=== PATIENT | female | born 1965 | race Caucasian/White ===

== ENCOUNTER 2022-04-05 08:52 | Inpatient (IN) | payer MEDICAID, OTHER ==
[~2022-04-05] VITALS: Ht 162.6 cm; Wt 49.4 kg
[~2022-04-05 08:52] MED LIST: ALBU6.7H9 INH; FLUT1DIS3 INH; LISI2.5T47 MT; P20 MT
[2022-04-05] MEDS ORDERED: SODIUM CHLORIDE 0.9% 1000ML BAG (SEPSIS BOLUS) IV ONE (09:15)
[2022-04-05] MEDS ORDERED: ALBUTEROL (0.083%) 2.5MG/3ML NEB HHN STA (09:38)
[2022-04-05] MEDS ORDERED: METHYLPREDNISOLONE SOD SUCC 125 MG/2 ML VIAL IV STA (09:38)
[2022-04-05] MEDS ORDERED: IPRATROPIUM BROMIDE (0.02%) 0.5MG/2.5ML NEB HHN STA (09:38)
[2022-04-05] MEDS ORDERED: MAGNESIUM 2 G PREMIX 50 ML IV STA (09:38)
[2022-04-05] MEDS ORDERED: IPRATROPIUM/ALBUTEROL 0.5-3(2.5)MG/3ML NEB ONE (12:38)
[2022-04-05] MEDS ORDERED: ALBUTEROL (0.083%) 2.5MG/3ML NEB ONE (12:38)
[2022-04-05] MEDS ORDERED: IPRATROPIUM BROMIDE (0.02%) 0.5MG/2.5ML NEB ONE (12:39)
[2022-04-05 13:18] LABS: CHLORIDE 90 mEq/L (98-107)
[2022-04-05] MEDS ORDERED: ALBUTEROL (0.083%) 2.5MG/3ML NEB HHN SCH (15:30)
[2022-04-05] MEDS ORDERED: IPRATROPIUM BROMIDE (0.02%) 0.5MG/2.5ML NEB HHN NR (15:36)
[2022-04-05] MEDS ORDERED: MAGNESIUM 2 G PREMIX 50 ML IV NR (15:37)
[2022-04-05] MEDS ORDERED: METHYLPREDNISOLONE SOD SUCC 125 MG/2 ML VIAL IV NR (15:37)
[2022-04-05 15:51] LABS: EOSINOPHILS % 0.2 % (0.0-5.0); HEMATOCRIT. 41.9 % (36.0-48.0); HEMOGLOBIN. 14.4 g/dL (12.0-16.0); LYMPHOCYTES % 32.5 % (20.0-50.0); MEAN CORPUSCULAR HEMOGLOBIN 33.1 pg (28.0-32.0); MEAN CORPUSCULAR VOLUME 96.1 fL (81.0-99.0); MEAN PLATELET VOLUME 7.9 fl (7.4-10.4); MONOCYTES % 13.7 % (2.0-8.0); NEUTROPHILS % 52.6 % (40.0-76.0); PLATELET 168 x1000/uL (130-400); RED BLOOD CELL COUNT 4.36 mill/uL (4.2-5.4); RED CELL DISTRIBUTION WIDTH 14.2 % (11.6-14.6)
[2022-04-05 17:09] LABS: CLARITY URINE CLEAR (CLEAR); COLOR URINE YELLOW (YELLOW); KETONES URINE NEGATIVE (NEGATIVE); LEUKOCYTE ESTERASE URINE TRACE (NEGATIVE); NITRITE URINE NEGATIVE (NEGATIVE); OCCULT BLOOD URINE NEGATIVE (NEGATIVE); PROTEIN URINE NEGATIVE (NEGATIVE); SPECIFIC GRAVITY URINE 1.006 (1.005-1.030)
[2022-04-05 17:09] LABS: INR 1.1; PROTHROMBIN TIME 11.8 sec (9.6-11.0)
[2022-04-06 01:00] VITALS: BP 133/75
[2022-04-06 04:00] VITALS: BP 132/70
[2022-04-06] MEDS ORDERED: IPRATROPIUM/ALBUTEROL 0.5-3(2.5)MG/3ML NEB HHN PRN ×2 (06:00→14:00)
[2022-04-06 08:00] VITALS: BP 146/81
[2022-04-06] MEDS ORDERED: METHYLPREDNISOLONE SOD SUCC 40 MG/ML VIAL IV SCH (08:00)
[2022-04-06 12:00] VITALS: BP 130/57
[2022-04-06] MEDS: FOLIC ACID 1MG TABLET PO SCH (15:11)
[2022-04-06] MEDS: THIAMINE HCL 100MG TABLET PO SCH (15:11)
[2022-04-06] MEDS: MULTIVITAMINS,THER W-MINERALS TABLET PO SCH (15:11)
[2022-04-06] MEDS: NICOTINE 21MG PATCH TD SCH (15:12)
[2022-04-06] MEDS: SODIUM CHLORIDE 0.9% 1,000 ML IV SCH (15:17)
[2022-04-06 16:00] VITALS: BP 100/62
[2022-04-06 20:00] VITALS: BP 138/69
[2022-04-06] MEDS: GUAIFENESIN 600MG ER TABLET PO SCH (21:16)
[2022-04-06] MEDS: METHYLPREDNISOLONE SOD SUCC 40 MG/ML VIAL IV SCH (21:16)
[2022-04-06] MEDS: IPRATROPIUM/ALBUTEROL 0.5-3(2.5)MG/3ML NEB HHN SCH (21:34)
[2022-04-07] VITALS: BP 131/71
[2022-04-07] MEDS: SODIUM CHLORIDE 0.9% 1,000 ML IV SCH ×4 (00:39→21:33)
[2022-04-07] MEDS: IPRATROPIUM/ALBUTEROL 0.5-3(2.5)MG/3ML NEB HHN SCH ×4 (02:24→21:35)
[2022-04-07 04:00] VITALS: BP 130/70
[2022-04-07 07:21] LABS: CHLORIDE 94 mEq/L (98-107)
[2022-04-07 08:00] VITALS: BP 150/76
[2022-04-07] MEDS: THIAMINE HCL 100MG TABLET PO SCH (09:40)
[2022-04-07] MEDS: NICOTINE 21MG PATCH TD SCH (09:40)
[2022-04-07] MEDS: GUAIFENESIN 600MG ER TABLET PO SCH ×2 (09:40→21:08)
[2022-04-07] MEDS: FOLIC ACID 1MG TABLET PO SCH (09:40)
[2022-04-07] MEDS: MULTIVITAMINS,THER W-MINERALS TABLET PO SCH (09:40)
[2022-04-07] MEDS: METHYLPREDNISOLONE SOD SUCC 40 MG/ML VIAL IV SCH ×3 (09:40→21:00)
[2022-04-07 12:00] VITALS: BP 121/76
[2022-04-07 16:00] VITALS: BP 118/79
[2022-04-07 20:00] VITALS: BP 103/51
[2022-04-07] MEDS: PREDNISONE 20MG TABLET PO SCH (21:46)
[2022-04-08] VITALS: BP 131/65
[2022-04-08] MEDS: IPRATROPIUM/ALBUTEROL 0.5-3(2.5)MG/3ML NEB HHN SCH ×3 (03:15→12:00)
[2022-04-08 04:00] VITALS: BP 145/77
[2022-04-08] MEDS: SODIUM CHLORIDE 0.9% 1,000 ML IV SCH ×2 (05:07→16:00)
[2022-04-08 07:34] LABS: BASOPHILS % 0.1 % (0.0-2.0); HEMATOCRIT. 41.1 % (36.0-48.0); LYMPHOCYTES % 16.8 % (20.0-50.0); MEAN CORPUSCULAR VOLUME 96.8 fL (81.0-99.0); MEAN PLATELET VOLUME 8.4 fl (7.4-10.4); NEUTROPHILS % 72.1 % (40.0-76.0); PLATELET 153 x1000/uL (130-400); RED BLOOD CELL COUNT 4.24 mill/uL (4.2-5.4); RED CELL DISTRIBUTION WIDTH 13.9 % (11.6-14.6)
[2022-04-08 07:35] LABS: CHLORIDE 94 mEq/L (98-107)
[2022-04-08 08:00] VITALS: BP 135/79
[2022-04-08] MEDS: THIAMINE HCL 100MG TABLET PO SCH (09:03)
[2022-04-08] MEDS: FOLIC ACID 1MG TABLET PO SCH (09:03)
[2022-04-08] MEDS: MULTIVITAMINS,THER W-MINERALS TABLET PO SCH (09:03)
[2022-04-08] MEDS: PREDNISONE 20MG TABLET PO SCH (09:03)
[2022-04-08] MEDS: GUAIFENESIN 600MG ER TABLET PO SCH ×2 (09:03→21:39)
[2022-04-08] MEDS: NICOTINE 21MG PATCH TD SCH (09:04)
[2022-04-08 12:00] VITALS: BP 148/87
[2022-04-08 16:00] VITALS: BP 166/87
[2022-04-08 17:12] LABS: BG BASE EXCESS 3.9 mmol/L (-2.0-2.0); BG CARBOXYHEMOGLOBIN 0.6 % (0.5-1.5); BG DEOXYHEMOGLOBIN 10.1 % (0.0-5.0); BG FRACTION INSPIRED OXYGEN 21; BG HCO3 ACT 28.6 mmol/L (22.0-26.0); BG METHEMOGLOBIN 0.2 % (0.0-1.5); BG OXYGEN SATURATION 89.8 % (92.0-98.5); BG OXYHEMOGLOBIN 89.1 % (94.0-97.0); BG PCO2 43.2 mmHg (35.0-45.0); BG PH 7.438 (7.350-7.450); BG PO2 56.7 mmHg (75.0-100.0); BG SAMPLE SITE RIGHT RADIAL; BG TOTAL HEMOGLOBIN 14.5 g/dL (12.0-18.0); BG VENT MODE ROOM AIR
[2022-04-08 20:00] VITALS: BP 138/84
[2022-04-08] MEDS: ZOLPIDEM TARTRATE 5MG TABLET PO PRN (21:40)
[2022-04-09] VITALS: BP 141/82
[2022-04-09] MEDS: IPRATROPIUM/ALBUTEROL 0.5-3(2.5)MG/3ML NEB HHN SCH ×4 (01:15→20:55)
[2022-04-09] MEDS: SODIUM CHLORIDE 0.9% 1,000 ML IV SCH ×3 (02:00→21:37)
[2022-04-09 04:00] VITALS: BP 138/75
[2022-04-09 08:00] VITALS: BP 148/87
[2022-04-09] MEDS: NICOTINE 21MG PATCH TD SCH (09:23)
[2022-04-09] MEDS: MULTIVITAMINS,THER W-MINERALS TABLET PO SCH (09:23)
[2022-04-09] MEDS: PREDNISONE 20MG TABLET PO SCH ×2 (09:23→18:01)
[2022-04-09] MEDS: GUAIFENESIN 600MG ER TABLET PO SCH ×2 (09:23→21:36)
[2022-04-09] MEDS: THIAMINE HCL 100MG TABLET PO SCH (09:23)
[2022-04-09] MEDS: FOLIC ACID 1MG TABLET PO SCH (09:23)
[2022-04-09] MEDS ORDERED: P20 MT (09:33)
[2022-04-09] MEDS ORDERED: FAMO20TA8 MT (09:33)
[2022-04-09] MEDS ORDERED: ALBU6.7H9 INH (09:34)
[2022-04-09] MEDS ORDERED: THIA100T72 MT (09:34)
[2022-04-09] MEDS ORDERED: MULT-1116 MT (09:34)
[2022-04-09 12:00] VITALS: BP 166/90
[2022-04-09] MEDS: AMLODIPINE 5MG TABLET PO SCH (13:49)
[2022-04-09] MEDS ORDERED: LORAZEPAM 1MG TABLET PO PRN ×2 (15:30)
[2022-04-09 15:56] VITALS: BP 107/65
[2022-04-09 20:00] VITALS: BP 155/88
[2022-04-09] MEDS: ZOLPIDEM TARTRATE 5MG TABLET PO PRN (21:36)
[2022-04-10] VITALS: BP 156/84
[2022-04-10] MEDS: SODIUM CHLORIDE 0.9% 1,000 ML IV SCH ×2 (00:30→07:17)
[2022-04-10] MEDS: IPRATROPIUM/ALBUTEROL 0.5-3(2.5)MG/3ML NEB HHN SCH ×4 (01:11→20:36)
[2022-04-10 04:00] VITALS: BP 146/78
[2022-04-10 08:00] VITALS: BP 141/75
[2022-04-10] MEDS: MULTIVITAMINS,THER W-MINERALS TABLET PO SCH (09:45)
[2022-04-10] MEDS: FOLIC ACID 1MG TABLET PO SCH (09:46)
[2022-04-10] MEDS: GUAIFENESIN 600MG ER TABLET PO SCH ×2 (09:46→21:58)
[2022-04-10] MEDS: NICOTINE 21MG PATCH TD SCH (09:46)
[2022-04-10] MEDS: PREDNISONE 20MG TABLET PO SCH ×2 (09:46→17:26)
[2022-04-10] MEDS: AMLODIPINE 5MG TABLET PO SCH (09:46)
[2022-04-10] MEDS: THIAMINE HCL 100MG TABLET PO SCH (09:46)
[2022-04-10 12:00] VITALS: BP 132/80
[2022-04-10 14:30] LABS: BG CARBOXYHEMOGLOBIN 0.7 % (0.5-1.5); BG DEOXYHEMOGLOBIN 13.7 % (0.0-5.0); BG FRACTION INSPIRED OXYGEN 21; BG HCO3 ACT 26.2 mmol/L (22.0-26.0); BG METHEMOGLOBIN 0.1 % (0.0-1.5); BG OXYGEN SATURATION 86.2 % (92.0-98.5); BG OXYHEMOGLOBIN 85.5 % (94.0-97.0); BG PCO2 39.3 mmHg (35.0-45.0); BG PH 7.441 (7.350-7.450); BG PO2 51.4 mmHg (75.0-100.0); BG SAMPLE SITE RIGHT RADIAL; BG TOTAL HEMOGLOBIN 14.2 g/dL (12.0-18.0); BG VENT MODE ROOM AIR
[2022-04-10 16:00] VITALS: BP 139/75
[2022-04-10 20:00] VITALS: BP 145/80
[2022-04-10] MEDS: HYDROCODONE/ACETAMINOPHEN 5/325MG TABLET PO PRN (22:00)
[2022-04-11] VITALS: BP 99/52
[2022-04-11] MEDS: IPRATROPIUM/ALBUTEROL 0.5-3(2.5)MG/3ML NEB HHN SCH ×3 (01:50→20:51)
[2022-04-11 04:00] VITALS: BP 124/78
[2022-04-11 06:44] LABS: BASOPHILS % 0.1 % (0.0-2.0); EOSINOPHILS % 0.1 % (0.0-5.0); HEMATOCRIT. 36.5 % (36.0-48.0); HEMOGLOBIN. 12.9 g/dL (12.0-16.0); MEAN CORPUSCULAR HEMOGLOBIN 33.7 pg (28.0-32.0); MEAN CORPUSCULAR VOLUME 95.2 fL (81.0-99.0); MEAN PLATELET VOLUME 8.4 fl (7.4-10.4); MONOCYTES % 11.1 % (2.0-8.0); NEUTROPHILS % 71.7 % (40.0-76.0); PLATELET 143 x1000/uL (130-400); RED BLOOD CELL COUNT 3.84 mill/uL (4.2-5.4); RED CELL DISTRIBUTION WIDTH 13.4 % (11.6-14.6)
[2022-04-11 07:19] LABS: CHLORIDE 79 mEq/L (98-107)
[2022-04-11 09:00] VITALS: BP 152/78
[2022-04-11] MEDS ORDERED: LORAZEPAM 0.5MG TABLET PO NR ×2 (09:15→15:00)
[2022-04-11] MEDS: GUAIFENESIN 600MG ER TABLET PO SCH ×2 (09:33→20:47)
[2022-04-11] MEDS: AMLODIPINE 5MG TABLET PO SCH (09:34)
[2022-04-11] MEDS: HYDROCODONE/ACETAMINOPHEN 5/325MG TABLET PO PRN (09:34)
[2022-04-11] MEDS: MULTIVITAMINS,THER W-MINERALS TABLET PO SCH (09:35)
[2022-04-11] MEDS: FOLIC ACID 1MG TABLET PO SCH (09:35)
[2022-04-11] MEDS: SODIUM CHLORIDE 0.9% 1,000 ML IV SCH ×2 (09:35→17:13)
[2022-04-11] MEDS: NICOTINE 21MG PATCH TD SCH (09:35)
[2022-04-11] MEDS: THIAMINE HCL 100MG TABLET PO SCH (09:35)
[2022-04-11] MEDS ORDERED: NALOXONE HCL 0.4MG/ML VIAL IV PRN (09:45)
[2022-04-11 12:00] VITALS: BP 148/77
[2022-04-11 13:00] LABS: SODIUM URINE RANDOM 29 mEq/L
[2022-04-11 13:07] LABS: *AMPHETAMINES SCREEN URINE NEGATIVE (NEGATIVE); *BARBITURATES SCREEN URINE NEGATIVE (NEGATIVE); *BENZODIAZEPINES SCREEN URINE NEGATIVE (NEGATIVE); *COCAINE SCREEN URINE NEGATIVE (NEGATIVE); CANNABINOID URINE SCREEN NEGATIVE (NEGATIVE); METHADONE URINE SCREEN NEGATIVE (NEGATIVE); OPIATES URINE SCREEN PRESUMTIVE POSITIVE (NEGATIVE); PHENCYCLIDINE URINE SCREEN NEGATIVE (NEGATIVE)
[2022-04-11 19:05] LABS: CHLORIDE 78 mEq/L (98-107)
[2022-04-11 20:00] VITALS: BP 147/81
[2022-04-11] MEDS ORDERED: SODIUM CHLORIDE 3% 500 ML IV NR (22:00)
[2022-04-12] VITALS (34 sets, daily range): BP systolic 85–143; BP diastolic 48–87
[2022-04-12] MEDS ORDERED: NICARDIPINE 100 MG in SODIUM CHLORIDE 0.9% 60 ML IV PRN ×2
[2022-04-12] MEDS ORDERED: HYDRALAZINE 20MG/ML VIAL IV PRN (01:15)
[2022-04-12] MEDS: LEVETIRACETAM 500MG PREMIX 100 ML IV SCH ×2 (01:38→08:26)
[2022-04-12] MEDS: MORPHINE SULFATE 2 MG/ML CPJ (NOT FOR IM USE) IV PRN ×3 (02:26→20:13)
[2022-04-12 05:31] LABS: HEMATOCRIT. 36.1 % (36.0-48.0); HEMOGLOBIN. 12.3 g/dL (12.0-16.0); MEAN CORPUSCULAR HEMOGLOBIN 33.4 pg (28.0-32.0); MEAN CORPUSCULAR VOLUME 97.8 fL (81.0-99.0); MEAN PLATELET VOLUME 7.6 fl (7.4-10.4); PLATELET 148 x1000/uL (130-400); RED CELL DISTRIBUTION WIDTH 13.6 % (11.6-14.6)
[2022-04-12 05:41] LABS: CHLORIDE 84 mEq/L (98-107)
[2022-04-12 05:48] LABS: PHOSPHORUS 1.6 mg/dL (2.5-4.9)
[2022-04-12] MEDS: IPRATROPIUM/ALBUTEROL 0.5-3(2.5)MG/3ML NEB HHN SCH ×3 (08:16→20:00)
[2022-04-12] MEDS: NICOTINE 21MG PATCH TD SCH (08:26)
[2022-04-12] MEDS: FOLIC ACID 1MG TABLET PO SCH (08:27)
[2022-04-12] MEDS: GUAIFENESIN 600MG ER TABLET PO SCH ×2 (08:27→20:10)
[2022-04-12] MEDS: AMLODIPINE 5MG TABLET PO SCH (08:27)
[2022-04-12] MEDS: MULTIVITAMINS,THER W-MINERALS TABLET PO SCH (08:27)
[2022-04-12] MEDS: PREDNISONE 20MG TABLET PO SCH (08:27)
[2022-04-12] MEDS: THIAMINE HCL 100MG TABLET PO SCH (08:27)
[2022-04-12] MEDS ORDERED: POTASSIUM PHOS,M-BASIC-D-BASIC 30 MMOL in SODIUM CHLORIDE 0.9% 500 ML IV NR (09:00)
[2022-04-12] MEDS ORDERED: LIDOCAINE HCL 1% 10 MG/ML 10ML VIAL ONE (09:59)
[2022-04-12 14:38] LABS: CHLORIDE 90 mEq/L (98-107)
[2022-04-12 15:13] LABS: PLATELET ESTIMATE NORMAL
[2022-04-12] MEDS: HALOPERIDOL LACTATE 5MG/ML VIAL IM PRN (16:54)
[2022-04-12] MEDS: LEVETIRACETAM 500MG TABLET PO SCH (20:10)
[2022-04-12] MEDS: HYDROCODONE/ACETAMINOPHEN 5/325MG TABLET PO PRN (23:22)
[2022-04-13] VITALS (12 sets, daily range): BP systolic 112–149; BP diastolic 51–84
[2022-04-13] MEDS: IPRATROPIUM/ALBUTEROL 0.5-3(2.5)MG/3ML NEB HHN SCH ×4 (01:43→20:26)
[2022-04-13] MEDS: MORPHINE SULFATE 2 MG/ML CPJ (NOT FOR IM USE) IV PRN ×5 (03:16→22:44)
[2022-04-13 07:59] LABS: HEMATOCRIT. 32.8 % (36.0-48.0); HEMOGLOBIN. 11.5 g/dL (12.0-16.0); MEAN CORPUSCULAR HEMOGLOBIN 33.7 pg (28.0-32.0); MEAN CORPUSCULAR VOLUME 95.7 fL (81.0-99.0); PLATELET 149 x1000/uL (130-400); RED BLOOD CELL COUNT 3.43 mill/uL (4.2-5.4); RED CELL DISTRIBUTION WIDTH 13.7 % (11.6-14.6)
[2022-04-13] MEDS: THIAMINE HCL 100MG TABLET PO SCH (08:19)
[2022-04-13] MEDS: AMLODIPINE 5MG TABLET PO SCH (08:20)
[2022-04-13] MEDS: PREDNISONE 20MG TABLET PO SCH (08:20)
[2022-04-13] MEDS: NICOTINE 21MG PATCH TD SCH (08:20)
[2022-04-13] MEDS: LEVETIRACETAM 500MG TABLET PO SCH ×2 (08:21→20:13)
[2022-04-13] MEDS: MULTIVITAMINS,THER W-MINERALS TABLET PO SCH (08:21)
[2022-04-13 08:35] LABS: CHLORIDE 96 mEq/L (98-107)
[2022-04-13 10:27] LABS: PLATELET ESTIMATE NORMAL
[2022-04-13] MEDS: FOLIC ACID 1MG TABLET PO SCH (10:34)
[2022-04-13] MEDS: GUAIFENESIN 600MG ER TABLET PO SCH ×2 (10:34→20:13)
[2022-04-13] MEDS ORDERED: POTASSIUM-SODIUM PHOSPHATE POWDER PACKET PO NR (11:30)
[2022-04-13] MEDS: POLYVINYL ALCOHOL OPHTH DROPS 15ML BOTHEYE SCH (18:19)
[2022-04-13] MEDS: HYDROCODONE/ACETAMINOPHEN 5/325MG TABLET PO PRN (20:07)
[2022-04-14] VITALS (9 sets, daily range): BP systolic 102–143; BP diastolic 58–84
[2022-04-14] MEDS: HALOPERIDOL LACTATE 5MG/ML VIAL IM PRN (00:07)
[2022-04-14] MEDS: POLYVINYL ALCOHOL OPHTH DROPS 15ML BOTHEYE SCH ×4 (00:07→18:00)
[2022-04-14] MEDS: IPRATROPIUM/ALBUTEROL 0.5-3(2.5)MG/3ML NEB HHN SCH ×5 (02:00→21:00)
[2022-04-14 06:13] LABS: CHLORIDE 93 mEq/L (98-107)
[2022-04-14 06:22] LABS: PHOSPHORUS 2.5 mg/dL (2.5-4.9)
[2022-04-14 06:41] LABS: BASOPHILS % 0.3 % (0.0-2.0); EOSINOPHILS % 0.3 % (0.0-5.0); HEMATOCRIT. 32.7 % (36.0-48.0); HEMOGLOBIN. 11.2 g/dL (12.0-16.0); LYMPHOCYTES % 22.5 % (20.0-50.0); MEAN CORPUSCULAR VOLUME 96.1 fL (81.0-99.0); MEAN PLATELET VOLUME 7.9 fl (7.4-10.4); MONOCYTES % 13.2 % (2.0-8.0); NEUTROPHILS % 63.7 % (40.0-76.0); PLATELET 165 x1000/uL (130-400); RED BLOOD CELL COUNT 3.41 mill/uL (4.2-5.4); RED CELL DISTRIBUTION WIDTH 13.8 % (11.6-14.6)
[2022-04-14] MEDS: NICOTINE 21MG PATCH TD SCH (09:29)
[2022-04-14] MEDS: PREDNISONE 20MG TABLET PO SCH (09:29)
[2022-04-14] MEDS: THIAMINE HCL 100MG TABLET PO SCH (09:29)
[2022-04-14] MEDS: MULTIVITAMINS,THER W-MINERALS TABLET PO SCH (09:30)
[2022-04-14] MEDS: FOLIC ACID 1MG TABLET PO SCH (09:30)
[2022-04-14] MEDS: GUAIFENESIN 600MG ER TABLET PO SCH ×2 (09:30→20:43)
[2022-04-14] MEDS: AMLODIPINE 5MG TABLET PO SCH (09:30)
[2022-04-14] MEDS: LEVETIRACETAM 500MG TABLET PO SCH ×2 (09:30→20:43)
[2022-04-14] MEDS: HYDROCODONE/ACETAMINOPHEN 5/325MG TABLET PO PRN (13:57)
[2022-04-14] MEDS: MORPHINE SULFATE 2 MG/ML CPJ (NOT FOR IM USE) IV PRN (21:41)
[2022-04-15] VITALS (10 sets, daily range): BP systolic 112–146; BP diastolic 59–87
[2022-04-15] MEDS: HYDROCODONE/ACETAMINOPHEN 5/325MG TABLET PO PRN ×2 (00:35→12:05)
[2022-04-15] MEDS: POLYVINYL ALCOHOL OPHTH DROPS 15ML BOTHEYE SCH ×5 (00:35→23:28)
[2022-04-15] MEDS: HALOPERIDOL LACTATE 5MG/ML VIAL IM PRN (01:20)
[2022-04-15 06:24] LABS: BASOPHILS % 0.1 % (0.0-2.0); EOSINOPHILS % 0.1 % (0.0-5.0); HEMATOCRIT. 30.2 % (36.0-48.0); HEMOGLOBIN. 10.4 g/dL (12.0-16.0); LYMPHOCYTES % 19.2 % (20.0-50.0); MEAN CORPUSCULAR HEMOGLOBIN 33.4 pg (28.0-32.0); MEAN CORPUSCULAR VOLUME 96.7 fL (81.0-99.0); MEAN PLATELET VOLUME 7.8 fl (7.4-10.4); MONOCYTES % 11.5 % (2.0-8.0); NEUTROPHILS % 69.1 % (40.0-76.0); PLATELET 151 x1000/uL (130-400); RED BLOOD CELL COUNT 3.12 mill/uL (4.2-5.4); RED CELL DISTRIBUTION WIDTH 13.5 % (11.6-14.6)
[2022-04-15 06:57] LABS: CHLORIDE 94 mEq/L (98-107)
[2022-04-15 07:28] LABS: PHOSPHORUS 2.9 mg/dL (2.5-4.9)
[2022-04-15] MEDS: IPRATROPIUM/ALBUTEROL 0.5-3(2.5)MG/3ML NEB HHN SCH ×3 (08:29→20:54)
[2022-04-15] MEDS: NICOTINE 21MG PATCH TD SCH (09:01)
[2022-04-15] MEDS: GUAIFENESIN 600MG ER TABLET PO SCH ×2 (09:01→21:05)
[2022-04-15] MEDS: MULTIVITAMINS,THER W-MINERALS TABLET PO SCH (09:02)
[2022-04-15] MEDS: FOLIC ACID 1MG TABLET PO SCH (09:02)
[2022-04-15] MEDS: THIAMINE HCL 100MG TABLET PO SCH (09:02)
[2022-04-15] MEDS: PREDNISONE 20MG TABLET PO SCH (09:02)
[2022-04-15] MEDS: LEVETIRACETAM 500MG TABLET PO SCH ×2 (09:02→21:05)
[2022-04-15] MEDS: AMLODIPINE 5MG TABLET PO SCH (09:02)
[2022-04-15] MEDS: MORPHINE SULFATE 2 MG/ML CPJ (NOT FOR IM USE) IV PRN (17:42)
[2022-04-15] MEDS: LACTULOSE 20G/30ML UDC PO SCH (21:05)
[2022-04-16] VITALS (11 sets, daily range): BP systolic 112–154; BP diastolic 64–88
[2022-04-16] MEDS: IPRATROPIUM/ALBUTEROL 0.5-3(2.5)MG/3ML NEB HHN SCH ×4 (00:49→20:21)
[2022-04-16] MEDS: HALOPERIDOL LACTATE 5MG/ML VIAL IM PRN (01:42)
[2022-04-16] MEDS: LACTULOSE 20G/30ML UDC PO SCH ×3 (05:09→21:15)
[2022-04-16] MEDS: POLYVINYL ALCOHOL OPHTH DROPS 15ML BOTHEYE SCH ×3 (05:09→17:56)
[2022-04-16 06:17] LABS: CHLORIDE 95 mEq/L (98-107)
[2022-04-16 06:28] LABS: PHOSPHORUS 3.1 mg/dL (2.5-4.9)
[2022-04-16 06:34] LABS: BASOPHILS % 0.4 % (0.0-2.0); EOSINOPHILS % 0.5 % (0.0-5.0); HEMATOCRIT. 31.1 % (36.0-48.0); HEMOGLOBIN. 10.6 g/dL (12.0-16.0); LYMPHOCYTES % 29.8 % (20.0-50.0); MEAN CORPUSCULAR HEMOGLOBIN 33.1 pg (28.0-32.0); MEAN CORPUSCULAR VOLUME 96.6 fL (81.0-99.0); MEAN PLATELET VOLUME 7.6 fl (7.4-10.4); NEUTROPHILS % 61.3 % (40.0-76.0); PLATELET 170 x1000/uL (130-400); RED BLOOD CELL COUNT 3.22 mill/uL (4.2-5.4); RED CELL DISTRIBUTION WIDTH 13.8 % (11.6-14.6)
[2022-04-16] MEDS: FOLIC ACID 1MG TABLET PO SCH (09:31)
[2022-04-16] MEDS: MULTIVITAMINS,THER W-MINERALS TABLET PO SCH (09:31)
[2022-04-16] MEDS: THIAMINE HCL 100MG TABLET PO SCH (09:32)
[2022-04-16] MEDS: PREDNISONE 20MG TABLET PO SCH (09:32)
[2022-04-16] MEDS: AMLODIPINE 5MG TABLET PO SCH (09:32)
[2022-04-16] MEDS: LEVETIRACETAM 500MG TABLET PO SCH ×2 (09:32→21:14)
[2022-04-16] MEDS: GUAIFENESIN 600MG ER TABLET PO SCH ×2 (09:32→21:14)
[2022-04-16] MEDS: NICOTINE 21MG PATCH TD SCH (09:33)
[2022-04-16] MEDS: MORPHINE SULFATE 2 MG/ML CPJ (NOT FOR IM USE) IV PRN ×3 (09:42→19:49)
[2022-04-17] VITALS (11 sets, daily range): BP systolic 104–137; BP diastolic 67–96
[2022-04-17] MEDS ORDERED: MORPHINE SULFATE 2 MG/ML CPJ (NOT FOR IM USE) IV NR (00:30)
[2022-04-17] MEDS: POLYVINYL ALCOHOL OPHTH DROPS 15ML BOTHEYE SCH ×3 (00:33→12:00)
[2022-04-17] MEDS: IPRATROPIUM/ALBUTEROL 0.5-3(2.5)MG/3ML NEB HHN SCH ×4 (02:18→21:00)
[2022-04-17] MEDS: HALOPERIDOL LACTATE 5MG/ML VIAL IM PRN ×2 (05:58→15:01)
[2022-04-17] MEDS: LACTULOSE 20G/30ML UDC PO SCH ×3 (05:58→21:48)
[2022-04-17 06:22] LABS: BASOPHILS % 0.3 % (0.0-2.0); EOSINOPHILS % 0.7 % (0.0-5.0); HEMATOCRIT. 31.5 % (36.0-48.0); HEMOGLOBIN. 10.9 g/dL (12.0-16.0); LYMPHOCYTES % 25.2 % (20.0-50.0); MEAN CORPUSCULAR HEMOGLOBIN 33.4 pg (28.0-32.0); MEAN CORPUSCULAR VOLUME 96.9 fL (81.0-99.0); MEAN PLATELET VOLUME 7.3 fl (7.4-10.4); NEUTROPHILS % 65.8 % (40.0-76.0); PLATELET 179 x1000/uL (130-400); RED BLOOD CELL COUNT 3.25 mill/uL (4.2-5.4); RED CELL DISTRIBUTION WIDTH 13.8 % (11.6-14.6)
[2022-04-17 06:24] LABS: CHLORIDE 96 mEq/L (98-107)
[2022-04-17 06:33] LABS: PHOSPHORUS 3.6 mg/dL (2.5-4.9)
[2022-04-17] MEDS: AMLODIPINE 5MG TABLET PO SCH (09:00)
[2022-04-17] MEDS: NICOTINE 21MG PATCH TD SCH (09:00)
[2022-04-17] MEDS: GUAIFENESIN 600MG ER TABLET PO SCH ×2 (09:27→21:36)
[2022-04-17] MEDS: FOLIC ACID 1MG TABLET PO SCH (09:27)
[2022-04-17] MEDS: LEVETIRACETAM 500MG TABLET PO SCH ×2 (09:27→21:36)
[2022-04-17] MEDS: THIAMINE HCL 100MG TABLET PO SCH (09:28)
[2022-04-17] MEDS: MULTIVITAMINS,THER W-MINERALS TABLET PO SCH (09:28)
[2022-04-17] MEDS ORDERED: HYDRALAZINE 5 MG in SODIUM CHLORIDE 0.9% 49.5 ML IV PRN (16:30)
[2022-04-18] VITALS: BP 144/76
[2022-04-18 04:00] VITALS: BP 147/73
[2022-04-18] MEDS: POLYVINYL ALCOHOL OPHTH DROPS 15ML BOTHEYE SCH ×4 (06:00→18:00)
[2022-04-18] MEDS: LACTULOSE 20G/30ML UDC PO SCH ×3 (06:24→21:33)
[2022-04-18 06:33] LABS: BASOPHILS % 0.7 % (0.0-2.0); EOSINOPHILS % 0.6 % (0.0-5.0); HEMATOCRIT. 31.5 % (36.0-48.0); HEMOGLOBIN. 10.8 g/dL (12.0-16.0); LYMPHOCYTES % 30.4 % (20.0-50.0); MEAN CORPUSCULAR HEMOGLOBIN 33.1 pg (28.0-32.0); MEAN CORPUSCULAR VOLUME 96.8 fL (81.0-99.0); MEAN PLATELET VOLUME 7.2 fl (7.4-10.4); MONOCYTES % 10.1 % (2.0-8.0); NEUTROPHILS % 58.2 % (40.0-76.0); PLATELET 157 x1000/uL (130-400); RED BLOOD CELL COUNT 3.25 mill/uL (4.2-5.4); RED CELL DISTRIBUTION WIDTH 13.9 % (11.6-14.6)
[2022-04-18 06:35] LABS: CHLORIDE 97 mEq/L (98-107)
[2022-04-18 06:42] LABS: PHOSPHORUS 3.7 mg/dL (2.5-4.9)
[2022-04-18 08:00] VITALS: BP 147/85
[2022-04-18] MEDS: IPRATROPIUM/ALBUTEROL 0.5-3(2.5)MG/3ML NEB HHN SCH ×2 (09:00→21:14)
[2022-04-18] MEDS: NICOTINE 21MG PATCH TD SCH (09:36)
[2022-04-18] MEDS: GUAIFENESIN 600MG ER TABLET PO SCH ×2 (09:36→21:33)
[2022-04-18] MEDS: LEVETIRACETAM 500MG TABLET PO SCH ×2 (09:36→21:32)
[2022-04-18] MEDS: FOLIC ACID 1MG TABLET PO SCH (09:37)
[2022-04-18] MEDS: HALOPERIDOL LACTATE 5MG/ML VIAL IM PRN ×2 (09:37→17:42)
[2022-04-18] MEDS: AMLODIPINE 5MG TABLET PO SCH (09:37)
[2022-04-18] MEDS: MULTIVITAMINS,THER W-MINERALS TABLET PO SCH (09:37)
[2022-04-18] MEDS: THIAMINE HCL 100MG TABLET PO SCH (09:37)
[2022-04-18 12:00] VITALS: BP 108/75
[2022-04-18 16:00] VITALS: BP 108/75
[2022-04-19] VITALS: BP 110/68
[2022-04-19 04:00] VITALS: BP 128/65
[2022-04-19] MEDS: LACTULOSE 20G/30ML UDC PO SCH ×3 (06:00→21:45)
[2022-04-19 07:41] LABS: EOSINOPHILS % 0.3 % (0.0-5.0); HEMATOCRIT. 32.9 % (36.0-48.0); LYMPHOCYTES % 26.5 % (20.0-50.0); MEAN CORPUSCULAR HEMOGLOBIN 33.3 pg (28.0-32.0); MEAN CORPUSCULAR VOLUME 99.3 fL (81.0-99.0); MEAN PLATELET VOLUME 7.5 fl (7.4-10.4); MONOCYTES % 10.5 % (2.0-8.0); NEUTROPHILS % 61.7 % (40.0-76.0); PLATELET 140 x1000/uL (130-400); RED BLOOD CELL COUNT 3.31 mill/uL (4.2-5.4); RED CELL DISTRIBUTION WIDTH 14.1 % (11.6-14.6)
[2022-04-19 07:53] LABS: CHLORIDE 100 mEq/L (98-107)
[2022-04-19 08:00] VITALS: BP 139/85
[2022-04-19 08:01] LABS: PHOSPHORUS 3.2 mg/dL (2.5-4.9)
[2022-04-19] MEDS: POLYVINYL ALCOHOL OPHTH DROPS 15ML BOTHEYE SCH ×5 (09:00→18:00)
[2022-04-19] MEDS: LEVETIRACETAM 500MG TABLET PO SCH ×2 (09:48→21:45)
[2022-04-19] MEDS: GUAIFENESIN 600MG ER TABLET PO SCH ×2 (09:49→21:45)
[2022-04-19] MEDS: AMLODIPINE 5MG TABLET PO SCH (09:49)
[2022-04-19] MEDS: THIAMINE HCL 100MG TABLET PO SCH (09:49)
[2022-04-19] MEDS: NICOTINE 21MG PATCH TD SCH (09:49)
[2022-04-19] MEDS: MULTIVITAMINS,THER W-MINERALS TABLET PO SCH (09:49)
[2022-04-19] MEDS: FOLIC ACID 1MG TABLET PO SCH (09:49)
[2022-04-19] MEDS: HALOPERIDOL LACTATE 5MG/ML VIAL IM PRN (09:56)
[2022-04-19] MEDS: CHLORDIAZEPOXIDE 5 MG CAPSULE PO SCH ×3 (11:00→21:45)
[2022-04-19 12:00] VITALS: BP 130/72
[2022-04-19 16:00] VITALS: BP 146/84
[2022-04-19 20:00] VITALS: BP 123/80
[2022-04-20] VITALS: BP 148/85
[2022-04-20 04:00] VITALS: BP 136/78
[2022-04-20] MEDS: CHLORDIAZEPOXIDE 5 MG CAPSULE PO SCH (06:32)
[2022-04-20] MEDS: LACTULOSE 20G/30ML UDC PO SCH ×3 (06:32→21:15)
[2022-04-20] MEDS: POLYVINYL ALCOHOL OPHTH DROPS 15ML BOTHEYE SCH ×5 (06:32→23:23)
[2022-04-20 07:19] LABS: CHLORIDE 100 mEq/L (98-107)
[2022-04-20 08:00] VITALS: BP 150/79
[2022-04-20] MEDS: NICOTINE 21MG PATCH TD SCH (10:05)
[2022-04-20] MEDS: THIAMINE HCL 100MG TABLET PO SCH (10:05)
[2022-04-20] MEDS: GUAIFENESIN 600MG ER TABLET PO SCH ×2 (10:05→21:12)
[2022-04-20] MEDS: MULTIVITAMINS,THER W-MINERALS TABLET PO SCH (10:05)
[2022-04-20] MEDS: LEVETIRACETAM 500MG TABLET PO SCH ×2 (10:06→21:12)
[2022-04-20] MEDS: AMLODIPINE 5MG TABLET PO SCH (10:06)
[2022-04-20] MEDS: FOLIC ACID 1MG TABLET PO SCH (10:07)
[2022-04-20 12:00] VITALS: BP 128/72
[2022-04-20] MEDS: CHLORDIAZEPOXIDE 25MG CAPSULE PO SCH ×2 (13:29→21:12)
[2022-04-20 16:00] VITALS: BP 125/81
[2022-04-20] MEDS: IPRATROPIUM/ALBUTEROL 0.5-3(2.5)MG/3ML NEB HHN SCH (21:30)
[2022-04-21] VITALS: BP 119/68
[2022-04-21 04:00] VITALS: BP 127/80
[2022-04-21] MEDS: POLYVINYL ALCOHOL OPHTH DROPS 15ML BOTHEYE SCH ×3 (05:37→18:00)
[2022-04-21] MEDS: CHLORDIAZEPOXIDE 25MG CAPSULE PO SCH ×3 (05:38→20:35)
[2022-04-21] MEDS: LACTULOSE 20G/30ML UDC PO SCH ×5 (05:38→20:42)
[2022-04-21 06:26] LABS: BASOPHILS % 0.9 % (0.0-2.0); EOSINOPHILS % 0.9 % (0.0-5.0); HEMATOCRIT. 32.4 % (36.0-48.0); HEMOGLOBIN. 11.1 g/dL (12.0-16.0); LYMPHOCYTES % 35.4 % (20.0-50.0); MEAN CORPUSCULAR HEMOGLOBIN 33.4 pg (28.0-32.0); MEAN CORPUSCULAR VOLUME 97.7 fL (81.0-99.0); MEAN PLATELET VOLUME 7.1 fl (7.4-10.4); MONOCYTES % 14.7 % (2.0-8.0); NEUTROPHILS % 48.1 % (40.0-76.0); PLATELET 161 x1000/uL (130-400); RED BLOOD CELL COUNT 3.32 mill/uL (4.2-5.4)
[2022-04-21 07:09] LABS: CHLORIDE 105 mEq/L (98-107)
[2022-04-21 07:30] LABS: PHOSPHORUS 3.4 mg/dL (2.5-4.9)
[2022-04-21 08:00] VITALS: BP 114/69
[2022-04-21] MEDS: IPRATROPIUM/ALBUTEROL 0.5-3(2.5)MG/3ML NEB HHN SCH (08:30)
[2022-04-21] MEDS: NICOTINE 21MG PATCH TD SCH (09:00)
[2022-04-21] MEDS: LEVETIRACETAM 500MG TABLET PO SCH ×2 (12:04→20:35)
[2022-04-21] MEDS: AMLODIPINE 5MG TABLET PO SCH (12:04)
[2022-04-21] MEDS: MULTIVITAMINS,THER W-MINERALS TABLET PO SCH (12:04)
[2022-04-21] MEDS: GUAIFENESIN 600MG ER TABLET PO SCH ×2 (12:04→20:35)
[2022-04-21] MEDS: FOLIC ACID 1MG TABLET PO SCH (12:05)
[2022-04-21] MEDS: THIAMINE HCL 100MG TABLET PO SCH (12:05)
[2022-04-21 16:00] VITALS: BP 100/60
[2022-04-21 20:00] VITALS: BP 115/68
[2022-04-21] MEDS: HALOPERIDOL LACTATE 5MG/ML VIAL IM PRN (20:33)
[2022-04-21] MEDS ORDERED: NALOXONE HCL 0.4MG/ML VIAL IV PRN (21:00)
[2022-04-21] MEDS: HYDROCODONE/ACETAMINOPHEN 5/325MG TABLET PO PRN (21:09)
[2022-04-22] VITALS: BP 126/51
[2022-04-22 04:00] VITALS: BP 139/64
[2022-04-22] MEDS: LACTULOSE 20G/30ML UDC PO SCH ×3 (06:00→21:11)
[2022-04-22] MEDS: POLYVINYL ALCOHOL OPHTH DROPS 15ML BOTHEYE SCH ×3 (06:00→12:00)
[2022-04-22] MEDS: HYDROCODONE/ACETAMINOPHEN 5/325MG TABLET PO PRN (06:05)
[2022-04-22] MEDS: CHLORDIAZEPOXIDE 25MG CAPSULE PO SCH ×3 (06:14→21:10)
[2022-04-22 07:05] LABS: BASOPHILS % 0.8 % (0.0-2.0); EOSINOPHILS % 1.5 % (0.0-5.0); HEMATOCRIT. 31.3 % (36.0-48.0); HEMOGLOBIN. 10.6 g/dL (12.0-16.0); MEAN CORPUSCULAR HEMOGLOBIN 33.8 pg (28.0-32.0); MEAN CORPUSCULAR VOLUME 99.2 fL (81.0-99.0); MEAN PLATELET VOLUME 7.4 fl (7.4-10.4); MONOCYTES % 13.5 % (2.0-8.0); NEUTROPHILS % 37.2 % (40.0-76.0); PLATELET 161 x1000/uL (130-400); RED BLOOD CELL COUNT 3.15 mill/uL (4.2-5.4); RED CELL DISTRIBUTION WIDTH 14.5 % (11.6-14.6)
[2022-04-22 07:37] LABS: CHLORIDE 103 mEq/L (98-107)
[2022-04-22 07:47] LABS: PHOSPHORUS 3.6 mg/dL (2.5-4.9)
[2022-04-22] MEDS: AMLODIPINE 5MG TABLET PO SCH (09:00)
[2022-04-22] MEDS: NICOTINE 21MG PATCH TD SCH (09:00)
[2022-04-22] MEDS: IPRATROPIUM/ALBUTEROL 0.5-3(2.5)MG/3ML NEB HHN SCH (09:00)
[2022-04-22] MEDS: FOLIC ACID 1MG TABLET PO SCH (09:24)
[2022-04-22] MEDS: MULTIVITAMINS,THER W-MINERALS TABLET PO SCH (09:24)
[2022-04-22] MEDS: LEVETIRACETAM 500MG TABLET PO SCH ×2 (09:24→21:10)
[2022-04-22] MEDS: GUAIFENESIN 600MG ER TABLET PO SCH ×2 (09:24→21:00)
[2022-04-22] MEDS: THIAMINE HCL 100MG TABLET PO SCH (09:34)
[2022-04-22 12:00] VITALS: BP 113/59
[2022-04-22] MEDS: HALOPERIDOL LACTATE 5MG/ML VIAL IM PRN (15:22)
[2022-04-22 16:00] VITALS: BP 112/66
[2022-04-22 20:00] VITALS: BP 116/60
[2022-04-23] VITALS: BP 20/100
[2022-04-23] MEDS: HALOPERIDOL LACTATE 5MG/ML VIAL IM PRN ×2 (02:39→12:51)
[2022-04-23] MEDS: LORAZEPAM 0.5MG TABLET PO PRN (03:14)
[2022-04-23 04:00] VITALS: BP 116/67
[2022-04-23] MEDS: LACTULOSE 20G/30ML UDC PO SCH ×3 (05:22→22:00)
[2022-04-23] MEDS: CHLORDIAZEPOXIDE 25MG CAPSULE PO SCH ×3 (05:23→22:17)
[2022-04-23 06:46] LABS: BASOPHILS % 0.7 % (0.0-2.0); HEMATOCRIT. 31.3 % (36.0-48.0); HEMOGLOBIN. 10.6 g/dL (12.0-16.0); LYMPHOCYTES % 38.3 % (20.0-50.0); MEAN CORPUSCULAR HEMOGLOBIN 33.4 pg (28.0-32.0); MEAN CORPUSCULAR VOLUME 98.5 fL (81.0-99.0); MEAN PLATELET VOLUME 7.5 fl (7.4-10.4); MONOCYTES % 13.8 % (2.0-8.0); NEUTROPHILS % 46.2 % (40.0-76.0); PLATELET 165 x1000/uL (130-400); RED BLOOD CELL COUNT 3.18 mill/uL (4.2-5.4); RED CELL DISTRIBUTION WIDTH 14.5 % (11.6-14.6)
[2022-04-23 07:26] LABS: CHLORIDE 102 mEq/L (98-107)
[2022-04-23 08:00] VITALS: BP 109/60
[2022-04-23] MEDS: FOLIC ACID 1MG TABLET PO SCH (10:22)
[2022-04-23] MEDS: LEVETIRACETAM 500MG TABLET PO SCH ×2 (10:22→22:18)
[2022-04-23] MEDS: AMLODIPINE 5MG TABLET PO SCH (10:23)
[2022-04-23] MEDS: THIAMINE HCL 100MG TABLET PO SCH (10:23)
[2022-04-23] MEDS: GUAIFENESIN 600MG ER TABLET PO SCH ×2 (10:23→21:00)
[2022-04-23] MEDS: MULTIVITAMINS,THER W-MINERALS TABLET PO SCH (10:23)
[2022-04-23] MEDS: NICOTINE 21MG PATCH TD SCH (10:24)
[2022-04-23 12:00] VITALS: BP 109/73
[2022-04-23] MEDS: HYDROCODONE/ACETAMINOPHEN 5/325MG TABLET PO PRN (12:50)
[2022-04-23 16:00] VITALS: BP 111/61
[2022-04-23 20:00] VITALS: BP 96/57
[2022-04-23] MEDS: RIFAXIMIN 550 MG TABLET PO SCH (21:00)
[2022-04-24] VITALS: BP 124/63
[2022-04-24 04:00] VITALS: BP 140/75
[2022-04-24] MEDS: HYDROCODONE/ACETAMINOPHEN 5/325MG TABLET PO PRN ×2 (04:28→16:04)
[2022-04-24] MEDS: LORAZEPAM 0.5MG TABLET PO PRN (04:34)
[2022-04-24] MEDS: LACTULOSE 20G/30ML UDC PO SCH ×2 (06:00→13:29)
[2022-04-24] MEDS: CHLORDIAZEPOXIDE 25MG CAPSULE PO SCH ×2 (06:42→13:29)
[2022-04-24 08:00] VITALS: BP 98/62
[2022-04-24 08:08] LABS: BASOPHILS % 0.6 % (0.0-2.0); EOSINOPHILS % 0.7 % (0.0-5.0); HEMATOCRIT. 29.4 % (36.0-48.0); HEMOGLOBIN. 10.1 g/dL (12.0-16.0); MEAN CORPUSCULAR HEMOGLOBIN 33.7 pg (28.0-32.0); MEAN PLATELET VOLUME 7.3 fl (7.4-10.4); MONOCYTES % 12.8 % (2.0-8.0); NEUTROPHILS % 53.9 % (40.0-76.0); PLATELET 167 x1000/uL (130-400); RED CELL DISTRIBUTION WIDTH 14.2 % (11.6-14.6)
[2022-04-24 08:25] LABS: CHLORIDE 99 mEq/L (98-107)
[2022-04-24] MEDS: RIFAXIMIN 550 MG TABLET PO SCH (10:31)
[2022-04-24] MEDS: GUAIFENESIN 600MG ER TABLET PO SCH (10:31)
[2022-04-24] MEDS: FOLIC ACID 1MG TABLET PO SCH (10:31)
[2022-04-24] MEDS: AMLODIPINE 5MG TABLET PO SCH (10:31)
[2022-04-24] MEDS: THIAMINE HCL 100MG TABLET PO SCH (10:31)
[2022-04-24] MEDS: NICOTINE 21MG PATCH TD SCH (10:31)
[2022-04-24] MEDS: MULTIVITAMINS,THER W-MINERALS TABLET PO SCH (10:31)
[2022-04-24] MEDS: LEVETIRACETAM 500MG TABLET PO SCH (10:32)
[2022-04-24 12:00] VITALS: BP 102/50
[2022-04-24] MEDS: POLYVINYL ALCOHOL OPHTH DROPS 15ML BOTHEYE SCH (12:00)
[2022-04-24] MEDS: IPRATROPIUM/ALBUTEROL 0.5-3(2.5)MG/3ML NEB HHN SCH (12:41)
[2022-04-24 16:00] VITALS: BP 123/68
[2022-04-24 16:15] VITALS: BP 102/50
== END 2022-04-24 18:45 | DRG 140 ==
LOC: ER 08:52 → 7WST 17:22 → EDBEDREQ 17:44 → EDBEDREQSVC 17:44 → EDBEDREQTM 17:44 → ENRESERV 22:01 → ER 04-06 00:37 → MICUSO 04-12 00:15 → 5EST 04-12 14:13 → 6EST 04-17 16:10
PROVIDERS: ADMIT Internal Medicine; ATTEND Internal Medicine
PROC: 02HV33Z Insertion of Infusion Device into Superior Vena Cava, Percutaneous Approach (ICD-10-PCS; principal; 2022-04-12)
PROC: B548ZZA Ultrasonography of Superior Vena Cava, Guidance (ICD-10-PCS; 2022-04-12)
DX: J44.1 Chronic obstructive pulmonary disease with (acute) exacerbation (principal); J96.01 Acute respiratory failure with hypoxia; G93.40 Encephalopathy, unspecified; E44.0 Moderate protein-calorie malnutrition; E22.2 Syndrome of inappropriate secretion of antidiuretic hormone; S06.5X0A Traumatic subdural hemorrhage without loss of consciousness, initial encounter; S72.115A Nondisplaced fracture of greater trochanter of left femur, initial encounter for closed fracture; D64.9 Anemia, unspecified; S00.03XA Contusion of scalp, initial encounter; E87.8 Other disorders of electrolyte and fluid balance, not elsewhere classified; K74.60 Unspecified cirrhosis of liver; B19.20 Unspecified viral hepatitis C without hepatic coma; F10.20 Alcohol dependence, uncomplicated; Y90.9 Presence of alcohol in blood, level not specified; M54.50 Low back pain, unspecified; I10 Essential (primary) hypertension; G89.29 Other chronic pain; E87.6 Hypokalemia; E83.39 Other disorders of phosphorus metabolism; K76.0 Fatty (change of) liver, not elsewhere classified; Z20.822 Contact with and (suspected) exposure to COVID-19; F17.210 Nicotine dependence, cigarettes, uncomplicated; S00.12XA Contusion of left eyelid and periocular area, initial encounter; W18.39XA Other fall on same level, initial encounter; Y92.238 Other place in hospital as the place of occurrence of the external cause; Y99.8 Other external cause status; Z79.899 Other long term (current) drug therapy; Y93.89 Activity, other specified; Z82.49 Family history of ischemic heart disease and other diseases of the circulatory system; Z99.3 Dependence on wheelchair; Z68.1 Body mass index [BMI] 19.9 or less, adult; Z95.0 Presence of cardiac pacemaker; Z71.6 Tobacco abuse counseling; Z91.19 Patient's noncompliance with other medical treatment and regimen
CPT/HCPCS: 36415; 36573; 36600; 70486; 71045; 72192; 76700; 80048; 80053; 80061; 80076; 80305; 81003; 82140; 82375; 82533; 82805; 83605; 83735; 83880; 83930; 83935; 84100; 84145; 84300; 84443; 84484; 85025; 87426; 93005; 93306; 94002; 94618; 94640; 94644; 97110; 97161; 97162; 97530; 99291; C1725; C1893; J0360; J1630; J1953; J2270; J2920; J2930; J3475; J3490; J7030; J7040; J7050; J7512